=== PATIENT | female | born 1930 | race Caucasian/White ===

== ENCOUNTER 2017-12-17 18:46 | Inpatient (IN) | payer OTHER ==
[~2017-12-17] VITALS: Ht 162.6 cm; Wt 65.1 kg
[~2017-12-17 18:46] MED LIST: ACET325 PO; ALBU90OI INH; AMLO5 PO; ASCO1ER; ASPI325 PO; ASPI325EC PO; ASPI81CH; ASPI81CH PO; ASPI81EC; ASPI81EC PO; AZIT250 PO; Augmentin 875-1 EACH PO; BENAML20/5 PO; CALC1.25T; CALCAVITD PO; CALCAVITDA PO; CALGLU500 PO; CENTRUM SILVER1 EAC2 PO; CHOL10002 PO; CODGUAEL PO; CYAN1000; DIPATR PO; DOCU100 PO; ELIQUIS2.5 MG PO; ERGO50000 PO; FISH1000 PO; FLUO20; FLUO20 PO; FURO20 PO; FURO40 PO; Furosemide40 MG PO; HYDACE5; HYDACE5 PO; HYDR1TAB94 PO; Hydrocodone-Ap1 EA23 PO; IBUP800; INSULANI SC; INSULANPEN SUBQ; ISOMON30 PO; Isosorbide Mono30 MG PO; KETO10 PO; LEVFLO500 PO; LEVO750 PO; LEVOFLOXACIN500 MG PO; LIDO700A20 TOP; LISI10; LOVA40; LOVA40 PO; Levaquin750 MG PO; Lopressor 25 mg25 MG PO; METF500; METF500 PO; METO25 PO; METO25ER PO; METO50; METO50 PO; MOMCAS15 PO; MULVITA PO; Mucinex1200 MG PO; Mucinex600 MG PO; NITRSPRAY; OMEG1CAP30 PO; OMEGA 3; OMEP20ER PO; OMEPRAZOLE MAGN20 MG PO; ONDA4ODT MM; OXYB5; OXYB5 PO; OXYC5 PO; POTA10T PO; POTCHL20ER PO; PRED20 PO; PROCODE120 PO; RXHYDACE PO; RXONDA4ODT MM; SPIHYD PO; SYMBACORT INH; Senokotxtra17.2 MG PO; TOCO1000; UBID10 PO; VITAMIN D-3 PO; VITB100 PO; WAL TUSSIN DM PO; WARF2.5 PO; WARF5 PO; ZOLP5 PO; Zithromax250 MG PO; [UNRECOGNIZED DRUG - OTHER]
[2017-12-17 19:32] LABS: BASOPHILS ABSOLUTE AUTO 0.06 K/mm3 (0.00-0.23); BASOPHILS PERCENT AUTO 1 % (0-2); EOSINOPHILS ABSOLUTE AUTO 0.08 K/mm3 (0.00-0.68); EOSINOPHILS PERCENT AUTO 1 % (0-6); Hematocrit 38.2 % (33.0-51.0); Hemoglobin 12.3 g/dL (11.5-16.0); IMMATURE GRAN ABSOLUTE AUTO 0.02 K/mm3 (0.00-0.10); IMMATURE GRAN PERCENT AUTO 0 % (0-1); LYMPHOCYTES ABSOLUTE AUTO 1.86 K/mm3 (0.84-5.20); LYMPHOCYTES PERCENT AUTO 26 % (21-46); MONOCYTES ABSOLUTE AUTO 0.52 K/mm3 (0.16-1.47); MONOCYTES PERCENT AUTO 7 % (4-13); Mean Corpuscular HGB 28.1 pg (26.0-34.0); Mean Corpuscular HGB Conc 32.2 g/dL (31.5-36.5); Mean Corpuscular Volume 87 fL (80-100); NEUTROPHILS PERCENT AUTO 65 % (41-73); Platelet Count 204 K/mm3 (150-400); RDW Coefficient Variation 18.9 % (11.7-14.2); RDW Standard Deviation 60.3 fL (35.1-46.3); Red Blood Cell Count 4.38 M/mm3 (3.80-5.20); White Blood Cell Count 7.24 K/mm3 (4.00-11.30)
[2017-12-17 19:42] LABS: Source, Urine Clean Catch
[2017-12-17 19:44] LABS: International Normalized Ratio 1.12; Prothrombin Time Results 11.7 Sec (9.7-11.5)
[2017-12-17] MEDS ORDERED: CHOL10002 (19:45)
[2017-12-17] MEDS ORDERED: METO25 (19:46)
[2017-12-17 19:48] LABS: Appearance, Urine Hazy (Clear); Bilirubin, Urine Neg (Neg); Blood, Urine Neg (Neg); Color, Urine Yellow (P-Yellow); Glucose Qualitative, Urine Neg (Neg); Ketones, Urine Neg (Neg); Leukocyte Esterase, Urine 2+ (Neg); Nitrite, Urine Neg (Neg); Protein, Urine Neg (Neg); Specific Gravity, Urine 1.015 (1.003-1.022); Urobilinogen, Urine NORM (Normal)
[2017-12-17] MEDS ORDERED: TORSE20 PO (19:49)
[2017-12-17] MEDS ORDERED: SPIR25 PO (19:49)
[2017-12-17 19:55] LABS: Albumin, Blood 3.8 g/dL (3.4-5.0); Bilirubin, Total 1.3 mg/dL (0.1-1.0); Bun/Creatinine Ratio 31.4 (12.0-20.0); Calcium, Blood 10.6 mg/dL (8.5-10.1); Creatinine, Blood 1.72 mg/dL (0.40-1.00); Potassium, Blood 4.1 mmol/L (3.5-5.5); Total Protein, Blood 7.8 g/dL (6.4-8.2)
[2017-12-17 19:59] LABS: Bacteria Many /hpf; Red Blood Cells, Urine 0-2 /hpf (0-2); Squamous Epithelial Cells Few /hpf (Few); White Blood Cells, Urine 50-100 /hpf (0-5)
[2017-12-17 20:00] LABS: Hyaline Casts 0-2 /lpf (0-2)
[2017-12-18 05:54] LABS: Bun/Creatinine Ratio 32.1 (12.0-20.0); Calcium, Blood 9.6 mg/dL (8.5-10.1); Creatinine, Blood 1.59 mg/dL (0.40-1.00); Potassium, Blood 4.3 mmol/L (3.5-5.5)
[2017-12-19 05:28] LABS: Albumin, Blood 2.9 g/dL (3.4-5.0); Anion Gap 10 mmol/L (6-16); Blood Urea Nitrogen 38 mg/dL (8-24); Bun/Creatinine Ratio 29.5 (12.0-20.0); CO2, Blood 25 mmol/L (21-32); Chloride, Blood 108 mmol/L (98-108); Creatinine, Blood 1.29 mg/dL (0.40-1.00); Glomerular Filtration Rate 41 (60-); Glucose, Blood 136 mg/dL (70-99); Phosphorus, Blood 2.7 mg/dL (2.5-4.9); Potassium, Blood 4.4 mmol/L (3.5-5.5); Sodium, Blood 143 mmol/L (136-145)
[2017-12-20 04:53] LABS: BASOPHILS ABSOLUTE AUTO 0.04 K/mm3 (0.00-0.23); BASOPHILS PERCENT AUTO 1 % (0-2); EOSINOPHILS ABSOLUTE AUTO 0.18 K/mm3 (0.00-0.68); EOSINOPHILS PERCENT AUTO 4 % (0-6); Hematocrit 29.2 % (33.0-51.0); Hemoglobin 9.5 g/dL (11.5-16.0); IMMATURE GRAN ABSOLUTE AUTO 0.01 K/mm3 (0.00-0.10); IMMATURE GRAN PERCENT AUTO 0 % (0-1); LYMPHOCYTES ABSOLUTE AUTO 1.99 K/mm3 (0.84-5.20); LYMPHOCYTES PERCENT AUTO 39 % (21-46); MONOCYTES ABSOLUTE AUTO 0.51 K/mm3 (0.16-1.47); MONOCYTES PERCENT AUTO 10 % (4-13); Mean Corpuscular HGB 28.9 pg (26.0-34.0); Mean Corpuscular HGB Conc 32.5 g/dL (31.5-36.5); Mean Corpuscular Volume 89 fL (80-100); Mean Platelet Volume 11.7 fL (9.1-12.4); NEUTROPHILS ABSOLUTE AUTO 2.42 K/mm3 (1.96-9.15); NEUTROPHILS PERCENT AUTO 47 % (41-73); Platelet Count 129 K/mm3 (150-400); RDW Standard Deviation 62.1 fL (35.1-46.3); Red Blood Cell Count 3.29 M/mm3 (3.80-5.20); White Blood Cell Count 5.15 K/mm3 (4.00-11.30)
[2017-12-20 05:09] LABS: Bun/Creatinine Ratio 25.3 (12.0-20.0); Calcium, Blood 8.9 mg/dL (8.5-10.1); Creatinine, Blood 0.99 mg/dL (0.40-1.00); Potassium, Blood 4.3 mmol/L (3.5-5.5)
[2017-12-20] MEDS ORDERED: CEPH500 PO (12:04)
== END 2017-12-20 12:40 | disposition home or self-care (01) | DRG 683 ==
LOC: ER 18:46 → MEDS 20:42 → ENPENDDIS 12-20 10:21 → MEDS 12-20 12:40
PROVIDERS: Emergency Medicine; Hospitalist; Internal Medicine
DX: N17.9 Acute kidney failure, unspecified (principal); E44.1 Mild protein-calorie malnutrition; I13.0 Hypertensive heart and chronic kidney disease with heart failure and stage 1 through stage 4 chronic kidney disease, or unspecified chronic kidney disease; N39.0 Urinary tract infection, site not specified; S22.32XA Fracture of one rib, left side, initial encounter for closed fracture; I50.32 Chronic diastolic (congestive) heart failure; E11.22 Type 2 diabetes mellitus with diabetic chronic kidney disease; I48.2 Chronic atrial fibrillation; I25.10 Atherosclerotic heart disease of native coronary artery without angina pectoris; N18.3 Chronic kidney disease, stage 3 (moderate); B96.20 Unspecified Escherichia coli [E. coli] as the cause of diseases classified elsewhere; Z79.01 Long term (current) use of anticoagulants; D63.1 Anemia in chronic kidney disease; Z95.1 Presence of aortocoronary bypass graft; J44.9 Chronic obstructive pulmonary disease, unspecified; M17.12 Unilateral primary osteoarthritis, left knee; D50.9 Iron deficiency anemia, unspecified; Z68.23 Body mass index [BMI] 23.0-23.9, adult; K21.9 Gastro-esophageal reflux disease without esophagitis
CPT/HCPCS: 36415; 51701; 71046; 80048; 80053; 80069; 81001; 82947; 84484; 85025; 85610; 87077; 87086; 87186; 93005; 93010; 96374; 96375; 97110; 97116; 97162; 97165; 97530; 97535; 99285; G8978; G8979; G8987; G8988; J0696; J2405; J3480; J7030

== ENCOUNTER → 2018-10-19 | Outpatient (CLI) | payer OTHER ==
[~2018-10-19] MED LIST changes: +CEPH500 PO; +CHOL10002; +METO25; +SPIR25 PO; +TORSE20 PO
[2018-10-19 13:10] LABS: Source, Urine Clean Catch
[2018-10-19 13:48] LABS: Appearance, Urine Clear (Clear); Bilirubin, Urine Neg (Neg); Blood, Urine 1+ (Neg); Color, Urine Yellow (P-Yellow); Glucose Qualitative, Urine Neg (Neg); Ketones, Urine Neg (Neg); Leukocyte Esterase, Urine 2+ (Neg); Nitrite, Urine Neg (Neg); Protein, Urine Neg (Neg); Urobilinogen, Urine NORM (Normal)
[2018-10-19 14:11] LABS: White Blood Cells, Urine 25-50 /hpf (0-5)
[2018-10-19 14:13] LABS: Red Blood Cells, Urine 0-2 /hpf (0-2)
[2018-10-19 14:14] LABS: Bacteria Rare /hpf; Squamous Epithelial Cells Rare /hpf (Few)
== END | disposition home or self-care (01) ==
LOC: LAB 13:00 → LAB SHORT 13:00
PROVIDERS: Nurse Practitioner Family
DX: N39.0 Urinary tract infection, site not specified (principal)
CPT/HCPCS: 81001; 87077; 87086; 87186

== ENCOUNTER 2019-04-19 19:52 | Emergency (ER) | payer OTHER ==
[~2019-04-19] VITALS: Ht 162.6 cm; Wt 62.6 kg
[2019-07-26] MEDS ORDERED: ALBU90OI (13:15)
[2019-07-26] MEDS ORDERED: CEFD300 PO (14:11)
== END 2019-04-19 21:22 | disposition home or self-care (01) ==
LOC: ER 19:52
DX: S51.811A Laceration without foreign body of right forearm, initial encounter (principal); I11.0 Hypertensive heart disease with heart failure; I50.9 Heart failure, unspecified; E11.9 Type 2 diabetes mellitus without complications; I48.91 Unspecified atrial fibrillation; D64.9 Anemia, unspecified; J44.9 Chronic obstructive pulmonary disease, unspecified; E78.5 Hyperlipidemia, unspecified; Z79.899 Other long term (current) drug therapy; W54.1XXA Struck by dog, initial encounter
CPT/HCPCS: 99282